=== PATIENT | male | born 1995 | race Caucasian/White ===

== ENCOUNTER 2017-05-20 02:53 | Emergency (ER) | payer SELFPAY ==
[2017-05-20] MEDS ORDERED: PROPARACAINE 0.5% 15 ML OPHT DROP ONE (03:06)
[2017-05-20] MEDS ORDERED: FLUORESCEIN SODIUM 1 MG STRIP OP ONE ×2 (03:06→03:09)
[2017-05-20] MEDS ORDERED: PROPARACAINE 0.5% 15 ML OPHT DROP OP ONE (03:09)
[2017-05-20 03:23] VITALS: RESP 18; TEMP 97.9
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
[2017-05-20 05:39] VITALS: BP 128/76; PULSE 87; O2SAT 96
== END 2017-05-20 05:35 | disposition home or self-care (01) ==
DX: T59.3X3A Toxic effect of lacrimogenic gas, assault, initial encounter (principal); Z02.89 Encounter for other administrative examinations